=== PATIENT | male | born 1995 | race Caucasian/White ===

== ENCOUNTER 2018-06-18 11:14 | Emergency (ER) | payer OTHER ==
[~2018-06-18] VITALS: Ht 175.3 cm; Wt 64.0 kg
[2018-06-18 15:55] VITALS: BP 133/88
== END 2018-06-18 15:56 | disposition home or self-care (01) ==
LOC: ER 12:16
DX: B34.9 Viral infection, unspecified (principal); R42 Dizziness and giddiness; R53.83 Other fatigue
CPT/HCPCS: 87804; 99284